=== PATIENT | female | born 1985 | race Caucasian/White ===

== ENCOUNTER 2019-06-26 22:01 | Emergency (ER) | payer OTHER ==
--- NOTE | 2019-06-26 22:44 | ERPHSYRPT ---
- History of Present Illness Time Seen by Provider: 06/26/19 22:41 Source: patient Exam Limitations: no limitations Patient Subjective Stated Complaint: pt states her horse fell and she went down on her lt side. states she has pain and a lump on her lt shoulder. states eh has been having some pain in her neck. Triage Nursing Assessment: pt alert and oriented. answers questions approp. pt ambulatory with steady gait noted. respiriations nonlabored with lungs cta. deformity and swelling noted to top lt shoulder, abrasion to lt side of head Physician History: 33-year-old white female previously healthy arrives with complaint of pain in her left side of her neck, pain in her left shoulder, pain in her posterior left thoracic region. Symptoms since just prior to arrival (at around 9:00.) Patient states she fell with her horse. Past medical history includes gallbladder problems past surgical history is negative social history rare alcohol use. . . Timing/Duration: today (9:00 PM) Severity: moderate Modifying Factors: Improves With: movement Associated Symptoms: No nausea, No vomiting, No abdominal pain, No shortness of breath, No heartburn, No diaphoresis, No cough, No chills, No chest pain, No fever, No headaches, No loss of appetite, No malaise, No rash, No syncope, No seizure, No weakness Allergies/Adverse Reactions: No Known Drug Allergies Allergy (Verified 06/26/19 22:38) Home Medications: Alprazolam [Xanax] 0.5 mg PO Q8H PRN PRN 06/26/19 [History] Escitalopram Oxalate 10 mg [Lexapro 10 MG] 5 mg PO HS 06/26/19 [History] Hx Tetanus, Diphtheria Vaccination/Date Given: Yes (2018) Hx Influenza Vaccination/Date Given: No Hx Pneumococcal Vaccination/Date Given: No - Review of Systems Constitutional: No Fever, No Chills Eyes: No Symptoms Ears, Nose, & Throat: No Symptoms Respiratory: No Cough, No Dyspnea Cardiac: No Chest Pain, No Edema, No Syncope Abdominal/Gastrointestinal: No Abdominal Pain, No Nausea, No Vomiting, No Diarrhea Genitourinary Symptoms: No Dysuria Musculoskeletal: Back Pain (pain left back inferior to the scapula), Neck Pain ( pain left neck), Fall (fell with her horse), Other (Pain left shoulder) Skin: No Rash Neurological: No Dizziness, No Focal Weakness, No Sensory Changes Psychological: No Symptoms Endocrine: No Symptoms All Other Systems: Reviewed and Negative (she initially alert she around the pregnancies to) - Past Medical History Pertinent Past Medical History: Yes GI Medical History: Gallbladder Disease - Past Surgical History Past Surgical History: No - Social History Smoking Status: Never smoker Exposure to second hand smoke: No Drug Use: none Patient Lives Alone: No - Female History Hx Last Menstrual Period: 4 weeks Hx Now: No - Nursing Vital Signs Nursing Vital Signs: Initial Vital Signs Temperature 98.2 F 06/26/19 22:14 Pulse Rate 101 H 06/26/19 22:14 Respiratory Rate 18 06/26/19 22:14 Blood Pressure 140/89 06/26/19 22:14 O2 Sat by Pulse Oximetry 99 06/26/19 22:14 Pain Scale Pain Intensity 7 - Physical Exam General Appearance: moderate distress, alert Eye Exam: PERRL/EOMI, eyes nml inspection Ears, Nose, Throat Exam: normal ENT inspection, TMs normal, pharynx normal, moist mucous membranes Neck Exam: other (neck is in a c-collar) Respiratory Exam: normal breath sounds, lungs clear, No respiratory distress Cardiovascular Exam: regular rate/rhythm, normal heart sounds, normal peripheral pulses, capillary refill <2 sec Gastrointestinal/Abdomen Exam: soft, normal bowel sounds, No tenderness, No mass Back Exam: other (Pain left infrascapular region) Extremity Exam: other (pain superior and superior lateralleft shoulder prominence of the a.c. joint on left) Neurologic Exam: alert, oriented x 3, cooperative, normal mood/affect, nml cerebellar function, nml station & gait, sensation nml, No motor deficits Skin Exam: normal color, warm, dry, No rash Lymphatic Exam: No adenopathy SpO2 Interpretation: normal (99%) SpO2: 99 - Course Nursing assessment & vital signs reviewed: Yes - Radiology Exams Left Shoulder X-ray Interpretation: Interpreted by me (shoulder separation with lateral portion of the clavicle avulsed, Glenohumeral joint intact) Chest X-ray Interpretation: Interpreted by me (Left shoulder separation noted. No rib fractures no pneumothorax no acute disease process) C-Spine X-ray Interpretation: Interpreted by me (C-spine: Fractures or subluxations) Ordered Tests: Active Orders 24 hr Category Date Time Status Sling Application STAT Care 06/26/19 23:23 Active CERVICAL SPINE (2 OR 3 VIEW) Stat Exams 06/26/19 22:38 Taken CHEST 2 VIEWS (PA AND LAT) Stat Exams 06/26/19 22:39 Taken SHOULDER Stat Exams 06/26/19 20:30 Taken HCG QUALITATIVE,SERUM Stat Lab 06/26/19 22:55 Completed Medication Summary Discontinued Medications Generic Name Dose Route Start Last Admin Trade Name Gurjit PRN Reason Stop Dose Admin Ketorolac Tromethamine 30 mg 06/26/19 23:22 Toradol 30 Mg Injection IV 06/26/19 23:23 STAT ONE Ketorolac Tromethamine Confirm 06/26/19 23:22 Toradol 30 Mg Injection Administered 06/26/19 23:23 Dose 30 mg .ROUTE .STK-MED ONE Lab/Rad Data: Laboratory Results 06/26/19 Range/Units 22:55 Serum , Qual NEGATIVE (Negative) - Progress Progress: improved Progress Note: 06/26/19 23:26 33-year-old white female arrives with complaint of pain in her left shoulder since falling off a horse she also had pain in her left lateral neck and pain in her posterior left scapular region. An x-ray of the patient's left shoulder patient has what appears to be a grade 3 shoulder separation. Patient has not broken her skin. Glenohumeral joint is intact. Patient's chest x-ray no rib fractures no pneumothorax. C-spine no fractures no subluxation. Patient really didn't want any pain medications however upon arrival back from x -ray patient did decide she would take some Toradol IV. Will go ahead and sling the patient's left arm. Patient is to keep the sling in place ice her left shoulder 24-48 hours. She is advised to followup with you [facility] tomorrow morning at 8 AM. Will go ahead and provide patient with prescription for Naprosyn. Also will write for small amount of [place] for the patient should she not get good pain control with her Naprosyn. - Departure Departure Disposition: Home Clinical Impression: Accidental fall Qualifiers: Encounter type: initial encounter Qualified Code(s): W19.XXXA - Unspecified fall, initial encounter Grade 3 separation of left shoulder Qualifiers: Encounter type: initial encounter Qualified Code(s): S43.085A - Other dislocation of left shoulder joint, initial encounter Cervical strain Qualifiers: Encounter type: initial encounter Qualified Code(s): S16.1XXA - Strain of muscle, fascia and tendon at neck level, initial encounter Condition: Fair Critical Care Time: No Referrals: DOCTOR,NO FAMILY [Primary Care Provider] - Additional Instructions: Return home. Ice to left shoulder 24-48 hours. Naprosyn 500 mg orally twice a day with food. [place]er 5/325 one orally every 6 hours as needed for pain. Followup [facility] tomorrow morning 8 AM. Return for acute distress severe symptoms or for any problems. Prescriptions: Hydrocodone/APAP 5-325 Tab^^^ [[place]er 5-325 Tablet^^^] 1 tab PO Q6HPRN PRN #10 tablet MDD 6 PRN Reason: left shoulder pain Naproxen 500 mg [Naprosyn 500 MG] 500 mg PO BIDPRN PRN #10 tablet PRN Reason: Pain
[2019-06-26] MEDS ORDERED: TORAdol 30 mg Injection IV ONE (23:22)
[2019-06-26] MEDS ORDERED: TORAdol 30 mg Injection ONE (23:22)
[2019-06-26] MEDS ORDERED: NORCO 5/325 MG ONE (23:33)
[2019-06-26] MEDS ORDERED: NORCO 5/325 MG PO ONE (23:34)
[2019-06-26 23:56] VITALS: BP 119/83; PULSE 93; O2SAT 97
--- NOTE | 2019-06-27 09:04 | XRAY ---
Indication: Pain following fall. Comparison: None 3 views of the cervical spine obtained in a c-collar demonstrates normal alignment with vertebral body heights/disc spaces maintained. No bony, articular, or soft tissue abnormalities.
--- NOTE | 2019-06-27 09:09 | XRAY ---
Indication: Pain following fall. Comparison: None 3 views of the left shoulder demonstrates distal clavicle displaced comminuted fracture with intact AC joint. No other bony, articular, or soft tissue abnormalities. Comment: Preliminary interpretation by the ER clinician does not report fracture. Telephone report given to Dr. Felder at 0904 hrs. on June 27, 2019.
--- NOTE | 2019-06-27 09:10 | XRAY ---
Indication: Pain following fall. Comparison: None PA/lateral chest demonstrates a few scattered calcified granulomas. Remaining heart and lungs normal. Bony thorax demonstrates incompletely visualized distal left clavicle fracture reported separately.
== END 2019-06-26 23:57 | disposition home or self-care (01) ==
LOC: ED 22:01
DX: S43.085A Other dislocation of left shoulder joint, initial encounter (principal); M25.512 Pain in left shoulder; S16.1XXA Strain of muscle, fascia and tendon at neck level, initial encounter; W18.39XA Other fall on same level, initial encounter; Y93.52 Activity, horseback riding; Y92.89 Other specified places as the place of occurrence of the external cause
CPT/HCPCS: 36415; 71046; 72040; 73030; 81025; 96374; 99284; J1885; A9270-GY